=== PATIENT | male | born 1985 | race Caucasian/White ===

== ENCOUNTER 2020-09-26 14:11 | Emergency (ER) | payer BC, SELFPAY ==
[2020-09-26 14:12] VITALS: BP 131/89; PULSE 56; RESP 16; TEMP 36.4; O2SAT 99; BMI 40.0
[2020-09-26 14:16] VITALS: BP 131/89; PULSE 56; RESP 16; TEMP 36.4; O2SAT 99
--- NOTE | 2020-09-26 14:30 | EX.ED.DYSGE1 ---
HPI History of Present Illness Chief Complaint: Abd Pain Informant: patient Narrative Narrative: Patient is a 35-year-old previously healthy male who presents to the emergency department for left-sided flank pain, abdominal pain. His symptoms have been present since this past Monday. The symptoms do come and go. He feels like he has passed kidney stones but he has no history of kidney stones in the past. He currently rates his pain as a 6 out of 10. No known aggravating or relieving factors. He has been try to take ibuprofen for this which did not give him significant relief. He does get nauseous when the pain flares up. He feels like his abdomen is diffusely tender but this is very mild. He feels like he has had some burning with urination. He denies any change in moving bowels. No fevers or chills. No chest pain, shortness of breath or cough. No previous abdominal surgeries. PFSH PFSH Home Medications hydrocodone-acetaminophen 1 tab PO Q8H PRN 3 Days #10 tab 09/26/20 [Rx Last Taken Unknown] multivitamin 1 tab PO DAILY 09/26/20 [History Last Taken Unknown] naproxen [Naprosyn] 500 mg PO BID #20 tab 09/26/20 [Rx Last Taken Unknown] ondansetron 4 mg PO Q8H PRN 3 Days #10 tab 09/26/20 [Rx Last Taken Unknown] tamsulosin [Flomax] 0.4 mg PO DAILY 5 Days #5 cap 09/26/20 [Rx Last Taken Unknown] Allergy/AdvReac Type Severity Reaction Status Date / Time No Known Allergies Allergy Verified 09/26/20 14:23 Surgical History (Updated 09/26/20 @ 14:21 by Teresa Chilel) H/O knee surgery Social History Smoking Status: Never smoker ROS ROS ED Constitutional Constitutional ED: Denies chills or fever(s) Eyes Eyes: Denies change in vision ENT ENT ED: Denies epistaxis or rhinorrhea Cardiovascular Cardiovascular: Denies chest pain or palpitations Respiratory/Chest Respiratory/Chest: Denies cough or dyspnea Gastrointestinal Gastrointestinal: Reports abdominal pain and nausea; Denies constipation, diarrhea, melena or vomiting Genitourinary Genitourinary ED: Denies hematuria or urinary frequency Musculoskeletal Musculoskeletal: Reports back pain; Denies neck pain Integumentary Denies rash Neurologic Neurologic: Denies dizziness, headache(s) or weakness EXAM Physical Exam Narrative Exam Narrative: Patient up standing next to bedside. Const Vital Signs: 09/26/20 14:12 09/26/20 14:16 Temperature 97.5 F L 97.5 F L Temperature Source Temporal Temporal Pulse Rate 56 L 56 L Respiratory Rate 16 16 Blood Pressure 131/89 H 131/89 H Blood Pressure Mean 103 103 Pulse Ox 99 99 Oxygen Delivery Method Room Air Room Air Positive well nourished and well developed General Appearance ED: well developed and NAD HEENT Reports normocephalic and head/scalp atraumatic Eyes PERRL and EOMs intact bilaterally Neck supple Resp normal respiratory effort and clear to auscultation bilaterally Auscultation: Negative for rales, rhonchi or wheezes Cardio regular rate, regular rhythm and no murmurs GI normal to inspection, nondistended, normoactive bowel sounds GI Narrative: Mild diffuse tenderness mostly in the upper quadrants and left side. No right lower quadrant tenderness. Palpation: soft; Negative for guarding or rebound tenderness present Back/Spine Back/Spine Narrative: Mild CVA tenderness on the left. Extremity normal to inspection General Extremety ED: Negative for edema or tenderness General Extremity: Negative for edema Neuro Sensorium / Orientation: alert Motor Exam: strength 5/5 throughout Psych mental status grossly normal Skin no rashes or lesions noted MDM MDM MDM Narrative Medical decision making narrative: Patient presents the ED for left-sided flank pain as well as abdominal pain. On arrival to the emergency department vital signs within normal limits and he is in no acute distress. He is a benign physical exam except for mild tenderness both to the left flank and abdomen. Will check CT scan of the abdomen/pelvis to evaluate for evidence of a kidney stone as well as basic lab work and urinalysis. He is given a dose of Toradol for symptomatic treatment. Patient CT scan did show a left UVJ stone. No evidence of infection on urinalysis. Kidney function is mildly decreased and needs to be monitored. The rest lab work did not reveal any significant acute abnormality. On repeat examination patient is resting more comfortably. He does feel comfortable being discharged home. He is given a prescription for Naprosyn, Freeman, Zofran and Flomax. He is given a referral for urology. Return precautions are reviewed with him. He understands and is agreeable this plan. All questions were answered. Lab Data Labs: Laboratory Results - last 24 hr 09/26/20 09/26/20 09/26/20 14:25 14:30 14:30 WBC 11.6 H RBC 4.88 Hgb 14.8 Hct 43.4 MCV 88.9 MCH 30.3 MCHC 34.1 RDW Std Deviation 39.1 RDW Coeff of [place] 12.1 Plt Count 259 MPV 9.4 Immature Gran % (Auto) 0.300 Neut % (Auto) 75.3 H Lymph % (Auto) 14.4 L [place] % (Auto) 7.8 Eos % (Auto) 1.9 Baso % (Auto) 0.3 Absolute Neuts (auto) 8.7 H Absolute Lymphs (auto) 1.67 Nucleated RBC % 0 Sodium 141 Potassium 4.2 Chloride 108 H Carbon Dioxide 28.0 Anion Gap 5 BUN 18 Creatinine 1.53 H Estim Creat Clear Calc 76.88 Est GFR (MDRD) Af Amer 67 Est GFR (MDRD) Non-Af 56 L BUN/Creatinine Ratio 11.8 Glucose 80 Calcium 8.9 Total Bilirubin 0.80 AST 16 ALT 43 Alkaline Phosphatase 66 Total Protein 7.3 Albumin 3.8 Globulin 3.5 Albumin/Globulin Ratio 1.1 Lipase 84 Urine Color Yellow Urine Clarity Clear Urine pH 7.0 Ur Specific [place] 1.010 Urine Protein 15 H Urine Glucose (UA) Normal Urine Ketones Negative Urine Occult Blood 250 H Urine Nitrite Negative Urine Bilirubin Negative Urine Urobilinogen Normal Ur Leukocyte Esterase Negative Urine RBC 10-25 SEEN Urine WBC 0 SEEN Ur Squamous Epith Cells 0 SEEN Urine Bacteria 0 SEEN Urine Mucus 0 SEEN Radiography Diagnostic Testing: Radiology Impression Abdomen/Pelvis CT 09/26/20 14:34 IMPRESSION: 2 mm left UVJ calculus with mild hydronephrosis and hydroureter. Electronically Signed: Karthik Fritz MD ([place]) at 15:24 EDT , Service support , Discharge Plan Triage Chief Complaint: Abd Pain ED Provider: Dakota Carr Dx/Rx/DC Orders Clinical Impression: Kidney stone on left side Instructions: ED Kidney Stone w/ Colic Prescriptions: New naproxen [Naprosyn] 500 mg tablet 500 mg PO BID Qty: 20 RF: 0 hydrocodone-acetaminophen 5-325 mg tablet 1 tab PO Q8H PRN (Reason: pain) 3 Days Qty: 10 RF: 0 ondansetron 4 mg tablet,disintegrating 4 mg PO Q8H PRN (Reason: nausea and vomiting) 3 Days Qty: 10 RF: 0 tamsulosin [Flomax] 0.4 mg capsule 0.4 mg PO DAILY 5 Days Qty: 5 RF: 0 No Action multivitamin Tablet 1 tab PO DAILY RF: 0 Primary Care Provider: Care Physician,No Primary Referrals: Moose Murguia MD [STAFF PHYSICIAN] - 3-5 Days if not improving Care Physician,No Primary [Primary Care Provider] - Disposition Disposition: Home, Self Care
--- NOTE | 2020-09-26 14:34 | CT_ITS ---
EXAM: CT ABDOMEN AND PELVIS WITHOUT INTRAVENOUS CONTRAST CLINICAL INDICATION: LEft flank pain and diffuse abd pain TECHNIQUE: Helically acquired images were obtained of the abdomen and pelvis without intravenous contrast. This CT exam was performed using one or more of the following dose reduction techniques: automated exposure control, adjustment of the mA and/or kV according to patient size, and/or use of iterative reconstruction technique. This report was created using [employer] report generation technology. COMPARISON: None. FINDINGS: LOWER THORAX: Unremarkable. Lung bases are clear. No cardiomegaly. No significant pericardial effusion. ABDOMEN: LIVER: Diffuse hepatic steatosis. No hepatic masses. GALLBLADDER AND BILE DUCTS: Unremarkable. No calcified gallstones. No gallbladder distention or wall edema. No intra- or extrahepatic biliary ductal dilation. PANCREAS: Unremarkable. No focal cystic mass. SPLEEN: Unremarkable. Normal size without focal cystic or solid mass. ADRENALS: Unremarkable. No nodules. KIDNEYS AND URETERS: 2 mm left UVJ calculus with mild hydronephrosis and hydroureter. Normal renal size and position. STOMACH AND BOWEL: Unremarkable. No stomach or bowel distention. No focal inflammatory change. PELVIS: APPENDIX: No evidence of acute appendicitis. BLADDER: Unremarkable. REPRODUCTIVE: Unremarkable as visualized. No mass. ABDOMEN and PELVIS: INTRAPERITONEAL SPACE: Unremarkable. No ascites or other fluid collection. No free air. BONES/JOINTS: Unremarkable. No suspicious lytic or blastic abnormality. SOFT TISSUES: Small bilateral fat-containing inguinal hernias. VASCULATURE: Unremarkable. Abdominal aorta is non-dilated. LYMPH NODES: Unremarkable. No enlarged lymph nodes. CT/Abdomen/Pelvis without Cont IMPRESSION: 2 mm left UVJ calculus with mild hydronephrosis and hydroureter. Electronically Signed: Karthik Fritz MD ([place]) at 15:24 EDT , Service support ,
[2020-09-26 14:47] LABS: Bacteria 0 SEEN /hpf (None Seen); Color, Urine Yellow (Yellow); Glucose, Dipstick Normal (Normal); Ketone-Dipstick Negative (Negative); Leukocyte Esterase-Dipstick Negative /ul (Negative); Mucous, Urine 0 SEEN /hpf (<or=2+); Nitrite-Dipstick Negative (Negative); Occult Blood-Urine 250 /ul (Negative); Protein-Dipstick 15 mg/dl (Negative); Squamous Epithelial Cells - UA 0 SEEN /hpf (0-5); Urine Bilirubin Dipstick Negative (Negative); Urine Clarity Clear (Clear); Urine Urobilinogen Normal (Normal); White Blood Cells 0 SEEN /hpf (0-5)
[2020-09-26 14:48] LABS: Absolute Lymphocyte Count 1.67 X10^3/uL (0.83-4.51); Absolute Neutrophil Count 8.7 X10^3/uL (2.0-7.7); Basophil# 0.04 X10^3/uL; Basophil% 0.3 % (0-1); Eosinophil# 0.22 X10^3/uL; Eosinophils% 1.9 % (0-5); Hematocrit 43.4 % (40-54); Hemoglobin 14.8 g/dL (13.0-16.5); Lymphocyte # 1.67 X10^3/ul (0.83-4.51); Lymphocyte % 14.4 % (19-41); Mean Corp Hgb Conc 34.1 g/dL (32-36); Mean Corpuscular Hgb 30.3 pg (27.0-32.0); Mean Corpuscular Volume 88.9 fL (80-94); Mean Platelet Vol. 9.4 fl (6.2-12.0); Monocyte# 0.91 X10^3/uL; Monocyte% 7.8 % (0-10); NRBC Flagged by Analyzer 0 % (0-5); Neutrophil # 8.72 X10^3/uL (2.7-7.7); Neutrophil % 75.3 % (47-70); Platelet Count 259 K/mm3 (150-450); RBC Distribution Width CV 12.1 % (11.6-14.6); RBC Distribution Width SD 39.1 fl (35.1-43.9); Red Blood Count 4.88 M/mm3 (4.6-6.2); White Blood Count 11.6 K/mm3 (4.4-11.0)
[2020-09-26 14:53] LABS: Red Blood Cells-Urine 10-25 SEEN /hpf (0-5)
[2020-09-26 15:00] LABS: ALB/GLOB Ratio 1.1 RATIO (0.9-2.4); AST(SGOT) 16 U/L (15-37); Alanine Aminotransfer ALT/SGPT 43 U/L (16-61); Albumin, Serum 3.8 g/dL (3.2-5.0); Alkaline Phosphatase 66 U/L (45-117); Anion Gap 5 (5-15); BUN 18 mg/dL (7-18); BUN/Creat Ratio 11.8 RATIO (10-20); Calcium,Total 8.9 mg/dL (8.5-10.1); Chloride 108 mmol/L (98-107); Creatinine, Serum 1.53 mg/dL (0.70-1.30); EST Glomerular Filtration Rate 56 mL/min (>60); Est Glom Filt Rate - Afr Amer 67 mL/min (>60); Estimated Creatinine Clearance 76.88 ml/min; Globulin 3.5 g/dL (2.2-4.2); Glucose 80 mg/dL (74-106); Lipase 84 U/L (73-393); Potassium 4.2 mmol/L (3.5-5.1); Protein, Total 7.3 g/dL (6.4-8.2); Sodium Level 141 mmol/L (136-145)
[2020-09-26 16:02] VITALS: BP 132/78; PULSE 80; RESP 15; O2SAT 97
== END 2020-09-26 16:03 | disposition home or self-care (01) ==
PROVIDERS: Emergency Provider Emergency Medicine
DX: N13.2 Hydronephrosis with renal and ureteral calculous obstruction (principal)
CPT/HCPCS: 74176; 80053; 81001; 83690; 85025; 99284; A4216